=== PATIENT | female | born 1980 | race Caucasian/White ===

== ENCOUNTER 2022-05-10 07:30 | Outpatient (CLI) | payer BC, SELFPAY | END 2022-05-10 07:31 | disposition home or self-care (01) | PROVIDERS: PCP Family Medicine; Referring Provider Family Medicine; Visit Provider Family Medicine | DX: Z00.00 Encounter for general adult medical examination without abnormal findings (principal); E03.9 Hypothyroidism, unspecified; Z13.6 Encounter for screening for cardiovascular disorders | CPT/HCPCS: 80048; 80061; 84443 ==

== ENCOUNTER 2022-06-28 16:25 | Outpatient (CLI) | payer BC, SELFPAY | END 2022-06-28 16:26 | disposition home or self-care (01) | LOC: NFLDREF 07-03 08:31 | PROVIDERS: PCP Family Medicine; Referring Provider Family Medicine; Visit Provider Family Medicine | DX: D64.9 Anemia, unspecified (principal) | CPT/HCPCS: 82607; 82728; 83540 ==

== ENCOUNTER 2022-06-29 18:48 | Emergency (ER) | payer BC, SELFPAY ==
[2022-06-29 19:01] VITALS: BP 133/66; PULSE 120; RESP 24; TEMP 36.2; O2SAT 100; BMI 33.1
[2022-06-29] MEDS: 0.9 % SODIUM CHLORIDE 1000 ml 1,000 ML IV ×2 (19:20→20:25)
[2022-06-29] MEDS: LORazepam 2 MG/ML inj 1 MG IVP (19:20)
[2022-06-29 19:35] LABS: Basophils Percent Auto 0.4 % (0.0-3.0); Eosinophils Percent Auto 0.7 % (0.0-7.0); Hematocrit 43.9 % (33.0-51.0); Hemoglobin* 13.7 gm/dL (12.0-16.0); Immature Granulocytes Pct Auto 0.2 %; Mean Corpuscular HGB Conc 31 gm/dL (32-36); Mean Corpuscular Hemoglobin 23 pg (26-34); Mean Corpuscular Volume 75 fL (80-100); Monocytes Percent Auto 3.5 % (0.0-11.0); Neutrophils Percent Auto 79.2 % (42.0-72.0); Platelet Count* 355 K/uL (140-440); RDW Coefficient of Variation % 17.4 % (11.5-15.5); Red Blood Count 5.88 m/uL (4.00-5.20); White Blood Count* 13.53 K/uL (4.50-11.00)
[2022-06-29 19:47] LABS: Albumin* 5.3 g/dL (3.3-5.0)
[2022-06-29 19:48] LABS: Chloride* 99 mmol/L (96-114); Sodium* 137 mmol/L (135-149)
[2022-06-29 19:49] VITALS: BP 127/84; PULSE 88; RESP 18; O2SAT 100
[2022-06-29 19:50] LABS: Amylase* 96 U/L (18-89); Bilirubin Direct* 0.3 mg/dL (0.0-0.5); Bilirubin Total* 0.8 mg/dL (0.1-1.5); Carbon Dioxide* 21 mmol/L (20-32); Creatinine* 0.8 mg/dL (0.5-1.5); Est. Creatinine Clearance* 69.83; Estimated Glomerular Filt Rate 95 ml/min; Total Protein* 9.6 g/dL (6.0-8.3)
[2022-06-29 19:51] LABS: Alanine Aminotransferase* 32 U/L (4-35); Alkaline Phosphatase* 81 U/L (40-150); Aspartate Amino Transferase* 28 U/L (12-35); Blood Urea Nitrogen* 12 mg/dL (5-24); Calcium* 10.1 mg/dL (8.4-10.6); Glucose* 148 mg/dL (60-115); Lipase* 126 U/L (23-300)
[2022-06-29 19:53] LABS: Ethanol* < 0.01 % (0.01-0.03)
[2022-06-29] MEDS: POTASSIUM CHLORIDE 10 MEQ/100 ML PIGGYBACK 100 MEQ IVPB (20:07)
--- NOTE | 2022-06-29 20:15 | ED_ITS ---
HPI - Nausea/Vomiting/Diarrhea General Date Seen: 06/29/22 Chief complaint: Nausea/Vomiting Stated complaint: Vomiting Time Seen by Provider: 06/29/22 18:51 Source: patient and family Mode of arrival: ambulatory Limitations: no limitations History of Present Illness HPI Narrative: This very nice lady is brought in by with a history of nausea, vomiting, and now diarrhea. She believes is secondary to her Ozempic has it she has been on for approximately 4 weeks and was recently increased, 1 of the primary side effects is nausea vomiting she has been nauseated and alternating with diarrhea on off. Been using some Zofran for this. Denies any significant abdominal pain, blood in her stools or vomitus, he does have a history of vomiting in the past, and esophageal changes secondary to this. MD elicited complaint: nausea and vomiting Description of vomiting: food contents Description of diarrhea: semi-solid Associated nausea: Yes Associated abdominal pain: No Location of pain: none Severity: moderate Quality: cramping Relieving factors: none Associated symptoms: denies other symptoms Related Data Home Medications Medication Instructions Recorded Confirmed betamethasone dipropionate 0.05 % 1 applic topical BID PRN 10/03/21 03/12/22 topical cream pantoprazole 40 mg tablet,delayed 40 mg PO QDAY 10/03/21 03/12/22 release (Protonix) zolpidem 5 mg tablet (Ambien) 5 mg PO QHS PRN 03/12/22 03/12/22 Previous Rx's Medication Instructions Recorded cholecalciferol (vitamin D3) 125 125 mcg PO DAILY #90 tabs 01/21/22 mcg (5,000 unit) disintegrating tablet levothyroxine 75 mcg tablet 75 mcg PO QDAY #90 tabs 04/23/22 phentermine 37.5 mg capsule 37.5 mg PO QDAY #30 caps 04/23/22 triamterene 37.5 1 tab PO QDAY #90 tabs 04/23/22 mg-hydrochlorothiazide 25 mg tablet potassium chloride 10 mEq 10 meq PO BID #14 tabs 06/29/22 tablet,extended release(part/cryst) Allergies Allergy/AdvReac Type Severity Reaction Status Date / Time hydrocodone Allergy Intermediate Vomiting Verified 03/12/22 12:39 oxycodone Allergy Intermediate Nausea/vomi Verified 03/12/22 12:39 ting codeine Allergy Mild Nausea Verified 03/12/22 12:39 penicillin V Allergy Mild Swelling Verified 03/12/22 12:39 of throat Sulfa drugs Allergy Mild Rash Uncoded 03/12/22 12:39 Review of Systems Status of ROS: Reports: 10 or more systems reviewed and unremarkable except as noted in History and below GI: Reports: nausea PFSH PFSH Medical History Anemia ?D64.9 - Anemia, unspecified (ICD-10) History of PCOS ?Z87.42 - Personal history of other diseases of the female genital tract (ICD-10) Vitamin D deficiency ?E55.9 - Vitamin D deficiency, unspecified (ICD-10) Surgical History History of cholecystectomy (2010) ?Z90.49 - Acquired absence of other specified parts of digestive tract (ICD- 10) History of hysterectomy (2012) ?Z90.710 - Acquired absence of both cervix and uterus (ICD-10) History of parotid gland excision ?Z90.49 - Acquired absence of other specified parts of digestive tract (ICD- 10) Social History Smoking Status: Former smoker Do you use any of these nicotine containing products: None How often do you have a drink containing alcohol: monthly or less How often do you have six or more drinks on one occasion: Less than monthly AUDIT-C Alcohol total score: 2 Non-prescribed substance use: marijuana (any form) Little interest or pleasure in doing things: several days Feeling down, depressed, or hopeless: not at all Exam Narrative: Exam Narrative: Patient is seen in room 3, she is nauseous, went to the bathroom had a large bowel movement felt better. Pupils are equal round reactive to light there is no scleral icterus redness TMs are normal oropharynx normal there is no adenopathy anterior posterior chains her neck is supple full range of motion. Chest is clear bilaterally with no wheezing crackles noted heart sounds are normal, abdomen is soft, and benign. No tenderness to palpation no guarding, no CVA tenderness. She moves all extremities independently and well. Const: Vital Signs, click to edit/add: Vital Signs - 24 hr 06/29/22 19:01 06/29/22 19:49 Temperature 97.2 F L Pulse Rate [Pulse Oximeter] 120 H 88 Respiratory Rate 24 18 Blood Pressure [Le ft Upper Arm] 133/66 127/84 Pulse Oximetry 100 100 Oxygen Delivery Me thod Room Air Room Air Documenting provider has reviewed patient's vital signs: yes Course Course Hospital Course: I discussed with her that her laboratory work is pretty reassuring with the exce ption she is hypokalemic we will give her a bump a potassium as I do not think she would tolerate oral at this point. I will send her home on some oral replacement of potassium. Least for a couple days. She can also drink fluids, I will give her a small supply of Ativan also too. That will should help this. I will have her contact her physician regards the is impact, his I believe this is the side effect that she is causing her issues. Return here if further issues or questions or worsening of the current condition. Vital Signs Vital signs: Initial Vital Signs Temperature 97.2 F L 06/29/22 19:01 Temperature Source Temporal Artery Scan 06/29/22 19:01 Pulse Rate 120 H 06/29/22 19:01 Respiratory Rate 24 06/29/22 19:01 Blood Pressure 133/66 06/29/22 19:01 Blood Pressure Mean 88 06/29/22 19:01 Pulse Oximetry 100 06/29/22 19:01 Oxygen Delivery Method Room Air 06/29/22 19:01 Vital Signs Temperature 97.2 F L 06/29/22 19:01 Pulse Rate 120 H 06/29/22 19:01 Respiratory Rate 24 06/29/22 19:01 Blood Pressure 133/66 06/29/22 19:01 Pulse Oximetry 100 06/29/22 19:01 Oxygen Delivery Method Room Air 06/29/22 19:01 Temperature 97.2 F L 06/29/22 19:01 Pulse Rate 88 06/29/22 19:49 Respiratory Rate 18 06/29/22 19:49 Blood Pressure 127/84 06/29/22 19:49 Pulse Oximetry 100 06/29/22 19:49 Oxygen Delivery Method Room Air 06/29/22 19:49 MDM - Nausea/Vomiting/Diarrhea MDM Narrative Medical decision making narrative: Differential diagnosis includes but is not limited to viral gastroenteritis, drug food poisoning, pyloric stenosis, gastritis, pancreatitis, hepatitis, cholecystitis, appendicitis, bowel obstruction, hyperemesis, cyclic vomiting syndrome, bulimia nervosa, migraine headache, motion sickness and medication side effect. These include the life threatening complications of appendicitis, drug food poisoning and bowel obstruction. Medical Records Attestation: I reviewed the patient's medical records. Lab Data Attestation: I reviewed the patient's lab results. Labs: Lab Results 06/29/22 Range/Units 19:25 WBC 13.53 H (4.50-11.00) K/uL RBC 5.88 H (4.00-5.20) m/uL Hgb 13.7 (12.0-16.0) gm/dL Hct 43.9 (33.0-51.0) % MCV 75 L (80-100) fL MCH 23 L (26-34) pg MCHC 31 L (32-36) gm/dL RDW Coeff of Armando 17.4 H (11.5-15.5) % Plt Count 355 (140-440) K/uL Neut % (Auto) 79.2 H (42.0-72.0) % Lymph % (Auto) 16.0 L (20-44) % Dickinson % (Auto) 3.5 (0.0-11.0) % Eos % (Auto) 0.7 (0.0-7.0) % Baso % (Auto) 0.4 (0.0-3.0) % Neut # (Auto) 10.70 H (1.7-7.0) K/uL Lymph # (Auto) 2.20 (0.90-2.90) K/uL Dickinson # (Auto) 0.50 (0.00-0.90) K/UL Eos # (Auto) 0.10 (0.00-0.50) K/uL Baso # (Auto) 0.10 (0.00-0.30) K/uL Sodium 137 (135-149) mmol/L Potassium 3.0 L (3.6-5.1) mmol/L Chloride 99 (96-114) mmol/L Carbon Dioxide 21 (20-32) mmol/L BUN 12 (5-24) mg/dL Creatinine 0.8 (0.5-1.5) mg/dL Estimated Creat Clear 69.83 Estimated GFR 95 ml/min Glucose 148 H (60-115) mg/dL Calcium 10.1 (8.4-10.6) mg/dL Total Bilirubin 0.8 (0.1-1.5) mg/dL Direct Bilirubin 0.3 (0.0-0.5) mg/dL AST 28 (12-35) U/L ALT 32 (4-35) U/L Alkaline Phosphatase 81 (40-150) U/L Total Protein 9.6 H (6.0-8.3) g/dL Albumin 5.3 H (3.3-5.0) g/dL Amylase 96 H (18-89) U/L Lipase 126 (23-300) U/L Ethyl Alcohol < 0.01 L (0.01-0.03) % Discharge Plan Discharge Clinical Impression: Medication adverse effect, Nausea, Vomiting, Acute hypokalemia Patient Disposition: Home, Self-Care Condition: Stable Instructions: Hypokalemia (ED), Acute Nausea and Vomiting (ED) Additional Instructions: Home rest clear fluids uses Zofran at small supply of Ativan is also been given, return here if signs and symptoms will put you on some potassium replacement for couple days but he need to be careful as your on triamterene which can cause elevated potassium levels. Please call your primary provider who prescribes is emphatic, and discuss further continuation. White count was normal but the hemoglobin looks like you may have some mild iron deficiency anemia. You should follow-up with this is a known with your primary care physician Activity Level: Light activity Prescriptions: New potassium chloride 10 mEq tablet,ER particles/crystals 10 meq PO BID Qty: 14 2RF No Action pantoprazole [Protonix] 40 mg tablet,delayed release (DR/EC) 40 mg PO QDAY betamethasone dipropionate 0.05 % cream 1 applic topical BID PRN zolpidem [Ambien] 5 mg tablet 5 mg PO QHS PRN cholecalciferol (vitamin D3) 125 mcg (5,000 unit) tablet,disintegrating 125 mcg PO DAILY Qty: 90 3RF levothyroxine 75 mcg tablet 75 mcg PO QDAY Qty: 90 1RF phentermine 37.5 mg capsule 37.5 mg PO QDAY Qty: 30 0RF Rx Instructions: must administer 30 minutes before or 1-2 hours after breakfast triamterene-hydrochlorothiazid 37.5-25 mg tablet 1 tab PO QDAY Qty: 90 0RF Follow Up/Referrals: Matias Agrawal MD [Primary Care Provider] - Stand Alone Forms: [employer] Info Instructions
[2022-06-29 20:16] LABS: Slide Review Reflex No
[2022-06-29 21:05] LABS: Appearance Urine Clear (Clear); Bilirubin Urine Negative (Negative); Blood Urine Negative (Negative); Color Urine Yellow (Yellow); Glucose Urine Negative (Negative); Ketones Urine 1+ (Negative); Leukocyte Esterase Urine Negative (Negative); Nitrite Urine Negative (Negative); Protein Urine Trace (Negative); Urobilinogen Urine 0.2 (0.2-1.0); pH Urine 8.5 (5.0-8.5)
[2022-06-29 21:06] VITALS: BP 144/86; PULSE 92; RESP 18; O2SAT 100
[2022-06-29 21:06] LABS: RBC Urine 0-2 (0-2); Squamous Epithelial Cell Urine Few (None-Few); WBC Urine 0-2 (0-5)
--- NOTE | 2022-06-29 21:23 | PC.NURSE ---
patient DC with , nausea has improved and patient no longer vomiting. all DC instructions gone over with patient and with no further questions.
== END 2022-06-29 21:23 | disposition home or self-care (01) ==
PROVIDERS: Emergency Provider Family Medicine; PCP Family Medicine
DX: R11.2 Nausea with vomiting, unspecified (principal); E87.6 Hypokalemia; T38.3X5A Adverse effect of insulin and oral hypoglycemic [antidiabetic] drugs, initial encounter
CPT/HCPCS: 36415; 80048; 80076; 81001; 82077; 82150; 83690; 85025; 96365; 96375; 99284; J2060; J3480; J7030

== ENCOUNTER 2022-07-02 19:26 | Emergency (ER) | payer BC, SELFPAY ==
[2022-07-02 19:33] VITALS: BP 127/85; PULSE 106; RESP 20; TEMP 36; O2SAT 98; BMI 31.6
--- NOTE | 2022-07-02 21:59 | ED.NAVMDI ---
HPI - Nausea/Vomiting/Diarrhea General Time Seen by Provider: 21:59 <Ruth Black MD - Last Filed: 07/05/22 19:49> Date Seen: 07/02/22 <Ruth Black MD - Last Filed: 07/05/22 19:49> Chief complaint: Nausea/Vomiting <Ruth Black MD - Last Filed: 07/05/22 19:49> Stated complaint: Throwing up and diarrhea for 4 days <Ruth Black MD - Last Filed: 07/05/22 19:49> Time Seen by Provider: 07/02/22 21:58 <Ruth Black MD - Last Filed: 07/05/22 19:49> Source: patient, RN notes reviewed and old records reviewed <Ruth Black MD - Last Filed: 07/05/22 19:49> Mode of arrival: ambulatory <Ruth Black MD - Last Filed: 07/05/22 19:49> Limitations: no limitations <Ruth Black MD - Last Filed: 07/05/22 19:49> History of Present Illness HPI Narrative: Patient is a 41-year-old female with history hypokalemia, hypertension, on phentermine for weight loss as well as Ozempic who comes to the emergency room with continued vomiting and diarrhea. Patient notes that for the past 2 weeks she has felt somewhat constipated in only had 2 stools in approximately 15 days. On SaturdayJune 29 she was actually at the grocery store which she had the sudden onset of vomiting. She went home and tried to Zofran is a but it did not help. She was actually thinking that perhaps the vomiting was from some constipation and therefore was going to send her up for MiraLax when she had the sudden onset of vomiting and stooling. Her diarrhea was bright yellow and has continued since then. She was seen at the emergency room on Saturday at which time she had a low potassium but other reassuring labs and was feeling better after fluids potassium and Ativan. She was discharged home. Since that time she has continued to have diarrhea and has had occasional vomiting. Today she notes that the vomiting has continued and she was seen at urgent care but urgent care to suggested she come to the emergency room. She notes that Ozempic does have side effects of nausea and vomiting and she was told to avoid fatty and high sugar foods which she has done. She notes that she still continues to feel bloated. She has not been on any recent antibiotics she denies a fever. She notes that for while she states that she has had breath that has smelled like rotten eggs this improved slightly after receiving the fluids but now has return. She notes that she just feels tired at this time. She describes a constant ache and burning sensation in her stomach. She denies alcohol use denies drug use except for marijuana and does not smoke anymore. Describes cramps in her intestines. She has not noticed any blood in her stool or vomit. <Ruth Black MD - Last Filed: 07/05/22 19:49> Associated nausea: Yes <Ruth Black MD - Last Filed: 07/05/22 19:49> Related Data Home medications: Home Medications Medication Instructions Recorded Confirmed betamethasone dipropionate 0.05 % 1 applic topical BID PRN 10/03/21 07/02/22 topical cream pantoprazole 40 mg tablet,delayed 40 mg PO QDAY 10/03/21 07/02/22 release (Protonix) zolpidem 5 mg tablet (Ambien) 5 mg PO QHS PRN 03/12/22 07/02/22 lorazepam 0.5 mg tablet 0.5 mg PO BID PRN 07/02/22 07/02/22 ondansetron 4 mg disintegrating 4 mg PO Q8H PRN 07/02/22 07/02/22 tablet phentermine 37.5 mg tablet 37.5 mg PO DAILY 07/02/22 07/02/22 semaglutide 1 mg/dose (2 mg/1.5 0.5 mg subcut QWEEK 07/02/22 07/02/22 mL) subcutaneous pen injector (Ozempic) Previous Rx's Medication Instructions Recorded cholecalciferol (vitamin D3) 125 125 mcg PO DAILY #90 tabs 01/21/22 mcg (5,000 unit) disintegrating tablet levothyroxine 75 mcg tablet 75 mcg PO QDAY #90 tabs 04/23/22 phentermine 37.5 mg capsule 37.5 mg PO QDAY #30 caps 04/23/22 triamterene 37.5 1 tab PO QDAY #90 tabs 04/23/22 mg-hydrochlorothiazide 25 mg tablet potassium chloride 10 mEq 10 meq PO BID #14 tabs 06/29/22 tablet,extended release(part/cryst) ferrous sulfate 325 mg (65 mg 325 mg PO BID #60 tabs 07/05/22 iron) tablet <Ruth Black MD - Last Filed: 07/05/22 19:49> Allergies/Adverse reactions: Allergies Allergy/AdvReac Type Severity Reaction Status Date / Time hydrocodone Allergy Intermediate Vomiting Verified 07/03/22 01:13 oxycodone Allergy Intermediate Nausea/vomi Verified 07/03/22 01:13 ting codeine Allergy Mild Nausea Verified 07/03/22 01:13 penicillin V Allergy Mild Swelling Verified 07/03/22 01:13 of throat Sulfa drugs Allergy Mild Rash Uncoded 07/03/22 01:13 <Ruth Black MD - Last Filed: 07/05/22 19:49> Review of Systems Status of ROS: Reports: 10 or more systems reviewed and unremarkable except as noted in History and below <Ruth Black MD - Last Filed: 07/05/22 19:49> Const: Reports: fatigue; Denies: fever or chills <Ruth Black MD - Last Filed: 07/05/22 19:49> ENMT: Denies: throat pain, neck pain, throat swelling or hoarseness <Ruth Black MD - Last Filed: 07/05/22 19:49> Cardio: Denies: chest pain, swelling of feet/ankles or shortness of breath with exertion <Ruth Black MD - Last Filed: 07/05/22 19:49> Resp: Denies: shortness of breath or cough <Ruth Black MD - Last Filed: 07/05/22 19:49> GI: Reports: abdominal pain, nausea, vomiting and diarrhea; Denies: blood in stool <Ruth Black MD - Last Filed: 07/05/22 19:49> : Denies: painful urination or urinary frequency <Ruth Black MD - Last Filed: 07/05/22 19:49> Musculo: Reports: back pain (Low back discomfort); Denies: neck pain <Ruth Black MD - Last Filed: 07/05/22 19:49> Neuro: Denies: headache <Ruth Black MD - Last Filed: 07/05/22 19:49> Endo: Reports: fatigue <Ruth Black MD - Last Filed: 07/05/22 19:49> Allergy/Immuno: Denies: throat swelling <Ruth Black MD - Last Filed: 07/05/22 19:49> [facility] Medical History: Medical History Anemia ?D64.9 - Anemia, unspecified (ICD-10) History of PCOS ?Z87.42 - Personal history of other diseases of the female genital tract (ICD-10) Vitamin D deficiency ?E55.9 - Vitamin D deficiency, unspecified (ICD-10) <Ruht Black MD - Last Filed: 07/05/22 19:49> Surgical History: Surgical History History of cholecystectomy (2010) ?Z90.49 - Acquired absence of other specified parts of digestive tract (ICD-10) History of hysterectomy (2012) ?Z90.710 - Acquired absence of both cervix and uterus (ICD-10) History of parotid gland excision ?Z90.49 - Acquired absence of other specified parts of digestive tract (ICD-10) <Ruth Black MD - Last Filed: 07/05/22 19:49> Social History: Social History Smoking Status: Never smoker Do you use any of these nicotine containing products: None How often do you have a drink containing alcohol: monthly or less How often do you have six or more drinks on one occasion: Less than monthly AUDIT-C Alcohol total score: 2 Non-prescribed substance use: marijuana (any form) Little interest or pleasure in doing things: several days Feeling down, depressed, or hopeless: not at all <Ruth Black MD - Last Filed: 07/05/22 19:49> Exam Narrative: Exam Narrative: Patient is alert and oriented. She is nontoxic in appearance but is holding her vomit bag. She is somewhat pale and oral cavities with tacky mucous membranes. External ears eyes nose clear. Neck was supple without lymphadenopathy heart with that is with a tachycardic rate but normal rhythm at this time. Lungs are clear bilaterally. Abdomen is obese soft I really cannot elicit any tenderness. Bowel sounds are present. Lower extremities without edema. No peritoneal signs and she is moving on the bed without difficulty. <Ruth Black MD - Last Filed: 07/05/22 19:49> Const: Vital Signs, click to edit/add: Vital Signs - 24 hr 07/02/22 19:33 07/02/22 22:27 07/02/22 23:39 Temperature 96.8 F L Pulse Rate [Pulse Oximeter] 106 H 93 92 Respiratory Rate 20 18 18 Blood Pressure [Ri ght Upper Arm] 127/85 141/88 H 123/80 Pulse Oximetry 98 98 98 Oxygen Delivery Me thod Room Air Room Air Room Air 07/03/22 00:23 07/03/22 02:15 Temperature Pulse Rate [Pulse Oximeter] 92 94 Respiratory Rate 18 16 Blood Pressure [Ri ght Upper Arm] 130/77 135/89 Pulse Oximetry 99 98 Oxygen Delivery Me thod Room Air Room Air <Ruth Black MD - Last Filed: 07/05/22 19:49> Vital Signs, click to edit/add: Vital Signs - 24 hr 07/02/22 19:33 07/02/22 22:27 07/02/22 23:39 Temperature 96.8 F L Pulse Rate [Pulse Oximeter] 106 H 93 92 Respiratory Rate 20 18 18 Blood Pressure [Ri ght Upper Arm] 127/85 141/88 H 123/80 Pulse Oximetry 98 98 98 Oxygen Delivery Me thod Room Air Room Air Room Air 07/03/22 00:23 07/03/22 02:15 Temperature Pulse Rate [Pulse Oximeter] 92 94 Respiratory Rate 18 16 Blood Pressure [Ri ght Upper Arm] 130/77 135/89 Pulse Oximetry 99 98 Oxygen Delivery Me thod Room Air Room Air <Cheryl Khan MD - Last Filed: 07/03/22 05:36> Documenting provider has reviewed patient's vital signs: yes <Ruth Black MD - Last Filed: 07/05/22 19:49> Course Course Hospital Course: Differential diagnosis includes but is not limited to viral gastroenteritis, drug food poisoning, pyloric stenosis, gastritis, pancreatitis, hepatitis, cholecystitis, appendicitis, bowel obstruction, hyperemesis, cyclic vomiting syndrome, bulimia nervosa, migraine headache, motion sickness and medication side effect. These include the life threatening? complications of appendicitis, drug food poisoning and bowel obstruction. Will place IV and give 1 L normal saline, Zofran 4 mg, Ativan 0.5 mg IV will proceed with CT of the abdomen. Will also check labs to include CBC, comprehensive panel, CRP, lipase, urinalysis. <Ruth Black MD - Last Filed: 07/05/22 19:49> Reevaluation(s) Reevaluation #1: Patient noted to have 4+ ketones in her urine thus she was given an additional L of normal saline. Also given 50 mEq of p.o. potassium. She has been able to keep this down. <Ruth Black MD - Last Filed: 07/05/22 19:49> Vital Signs Vital signs: Initial Vital Signs Temperature 96.8 F L 07/02/22 19:33 Temperature Source Temporal Artery Scan 07/02/22 19:33 Pulse Rate 106 H 07/02/22 19:33 Respiratory Rate 20 07/02/22 19:33 Blood Pressure 127/85 07/02/22 19:33 Blood Pressure Mean 99 07/02/22 19:33 Blood Pressure Position Sitting 07/02/22 19:33 Pulse Oximetry 98 07/02/22 19:33 Oxygen Delivery Method Room Air 07/02/22 19:33 Vital Signs Temperature 96.8 F L 07/02/22 19:33 Pulse Rate 106 H 07/02/22 19:33 Respiratory Rate 20 07/02/22 19:33 Blood Pressure 127/85 07/02/22 19:33 Pulse Oximetry 98 07/02/22 19:33 Oxygen Delivery Method Room Air 07/02/22 19:33 Temperature 96.8 F L 07/02/22 19:33 Pulse Rate 94 07/03/22 02:15 Respiratory Rate 16 07/03/22 02:15 Blood Pressure 135/89 07/03/22 02:15 Pulse Oximetry 98 07/03/22 02:15 Oxygen Delivery Method Room Air 07/03/22 02:15 <Ruth Black MD - Last Filed: 07/05/22 19:49> Initial Vital Signs Temperature 96.8 F L 07/02/22 19:33 Temperature Source Temporal Artery Scan 07/02/22 19:33 Pulse Rate 106 H 07/02/22 19:33 Respiratory Rate 20 07/02/22 19:33 Blood Pressure 127/85 07/02/22 19:33 Blood Pressure Mean 99 07/02/22 19:33 Blood Pressure Position Sitting 07/02/22 19:33 Pulse Oximetry 98 07/02/22 19:33 Oxygen Delivery Method Room Air 07/02/22 19:33 Vital Signs Temperature 96.8 F L 07/02/22 19:33 Pulse Rate 106 H 07/02/22 19:33 Respiratory Rate 20 07/02/22 19:33 Blood Pressure 127/85 07/02/22 19:33 Pulse Oximetry 98 07/02/22 19:33 Oxygen Delivery Method Room Air 07/02/22 19:33 Temperature 96.8 F L 07/02/22 19:33 Pulse Rate 94 07/03/22 02:15 Respiratory Rate 16 07/03/22 02:15 Blood Pressure 135/89 07/03/22 02:15 Pulse Oximetry 98 07/03/22 02:15 Oxygen Delivery Method Room Air 07/03/22 02:15 <Cheryl Khan MD - Last Filed: 07/03/22 05:36> MDM - Nausea/Vomiting/Diarrhea MDM Narrative Medical decision making narrative: 1. Vomiting and diarrhea-no evidence of abnormality noted on abdominal CT. White count is within normal limits and CRP is normal as well. Negative C diff and stool culture is currently pending. Likely this is secondary to use of Ozempic. Patient received 2 L of normal saline, Ativan and Zofran. Will discharge her home with continued medications of this nature. Recommend no future use of Ozempic. 2. Hypokalemia-3.4. Given 50 mEq of p.o. potassium. 3. Disposition-home at this time. Seek medical attention for worsening symptoms. <Ruth Black MD - Last Filed: 07/05/22 19:49> 1. Vomiting and diarrhea-no evidence of abnormality noted on abdominal CT. White count is within normal limits and CRP is normal as well. Negative C diff and stool culture is currently pending. Likely this is secondary to use of Ozempic. Patient received 2 L of normal saline, Ativan and Zofran. Will discharge her home with continued medications of this nature. Recommend no future use of Ozempic. 2. Hypokalemia-3.4. Given 50 mEq of p.o. potassium. 3. Disposition-home at this time. Seek medical attention for worsening symptoms. Dr. Khan: Update: 1:00 a.m.: Patient was able to tolerate some soup and had held down her oral potassium. She meets criteria for discharge. She is instructed to stop her Ozempic, continue the Zofran and lorazepam as needed. Push fluids and follow up with her primary care team to discuss alternative options. <Cheryl Khan MD - Last Filed: 07/03/22 05:36> Medical Records Attestation: I reviewed the patient's medical records. <Ruth Black MD - Last Filed: 07/05/22 19:49> Lab Data Attestation: I reviewed the patient's lab results. <Ruth Black MD - Last Filed: 07/05/22 19:49> Labs: Lab Results 07/02/22 07/02/22 07/02/22 Range/Units 22:15 22:21 22:34 WBC 10.93 (4.50-11.00) K/uL RBC 5.61 H (4.00-5.20) m/uL Hgb 13.1 (12.0-16.0) gm/dL Hct 41.4 (33.0-51.0) % MCV 74 L (80-100) fL MCH 23 L (26-34) pg MCHC 32 (32-36) gm/dL RDW Coeff of Armando 17.5 H (11.5-15.5) % Plt Count 305 (140-440) K/uL Neut % (Auto) 71.7 (42.0-72.0) % Lymph % (Auto) 21.4 (20-44) % [place] % (Auto) 5.0 (0.0-11.0) % Eos % (Auto) 1.2 (0.0-7.0) % Baso % (Auto) 0.3 (0.0-3.0) % Neut # (Auto) 7.84 H (1.7-7.0) K/uL Lymph # (Auto) 2.34 (0.90-2.90) K/uL [place] # (Auto) 0.50 (0.00-0.90) K/UL Eos # (Auto) 0.13 (0.00-0.50) K/uL Baso # (Auto) 0.03 (0.00-0.30) K/uL Sodium 135 (135-149) mmol/L Potassium 3.4 L (3.6-5.1) mmol/L Chloride 101 (96-114) mmol/L Carbon Dioxide 18 L (20-32) mmol/L BUN 12 (5-24) mg/dL Creatinine 0.9 (0.5-1.5) mg/dL Estimated Creat Clear 62.07 Estimated GFR 82 ml/min Glucose 87 (60-115) mg/dL Calcium 9.6 (8.4-10.6) mg/dL Magnesium 1.8 (1.5-2.6) mg/dL Total Bilirubin 0.8 (0.1-1.5) mg/dL AST 45 H (12-35) U/L ALT 34 (4-35) U/L Alkaline Phosphatase 57 (40-150) U/L C-Reactive Protein 0.6 (0.5-1.0) mg/dL Total Protein 8.5 H (6.0-8.3) g/dL Albumin 5.3 H (3.3-5.0) g/dL Lipase 50 (23-300) U/L Urine Color Yellow (Yellow) Urine Appearance Cloudy A (Clear) Urine pH 6.5 (5.0-8.5) Ur Specific [place] 1.015 (1.000-1.030) Urine Protein Negative (Negative) Urine Glucose (UA) Negative (Negative) Urine Ketones 4+ A (Negative) Urine Blood Negative (Negative) Urine Nitrite Negative (Negative) Urine Bilirubin 1+ A (Negative) Urine Urobilinogen 0.2 (0.2-1.0) Ur Leukocyte Esterase Negative (Negative) Urine RBC 25-50 A (0-2) Urine WBC 2-5 (0-5) Ur Squamous Epith Cells Few (None-Few) Urine Bacteria Few A (None) Stl C. diff Tox B Gene Negative (Negative) Stl C. diff 027-NAP1-BI PRESUMPTIVE NEGATIVE (Negative) SARS-CoV-2 (PCR) Negative SARS-CoV-2 (Negative) Influenza Type A (PCR) Negative PCR FLU A (Negative) Influenza Type B (PCR) Negative PCR FLU B (Negative) <Ruth Black MD - Last Filed: 07/05/22 19:49> Lab Results 07/02/22 07/02/22 07/02/22 Range/Units 22:15 22:21 22:34 WBC 10.93 (4.50-11.00) K/uL RBC 5.61 H (4.00-5.20) m/uL Hgb 13.1 (12.0-16.0) gm/dL Hct 41.4 (33.0-51.0) % MCV 74 L (80-100) fL MCH 23 L (26-34) pg MCHC 32 (32-36) gm/dL RDW Coeff of Armando 17.5 H (11.5-15.5) % Plt Count 305 (140-440) K/uL Neut % (Auto) 71.7 (42.0-72.0) % Lymph % (Auto) 21.4 (20-44) % [place] % (Auto) 5.0 (0.0-11.0) % Eos % (Auto) 1.2 (0.0-7.0) % Baso % (Auto) 0.3 (0.0-3.0) % Neut # (Auto) 7.84 H (1.7-7.0) K/uL Lymph # (Auto) 2.34 (0.90-2.90) K/uL [place] # (Auto) 0.50 (0.00-0.90) K/UL Eos # (Auto) 0.13 (0.00-0.50) K/uL Baso # (Auto) 0.03 (0.00-0.30) K/uL Sodium 135 (135-149) mmol/L Potassium 3.4 L (3.6-5.1) mmol/L Chloride 101 (96-114) mmol/L Carbon Dioxide 18 L (20-32) mmol/L BUN 12 (5-24) mg/dL Creatinine 0.9 (0.5-1.5) mg/dL Estimated Creat Clear 62.07 Estimated GFR 82 ml/min Glucose 87 (60-115) mg/dL Calcium 9.6 (8.4-10.6) mg/dL Magnesium 1.8 (1.5-2.6) mg/dL Total Bilirubin 0.8 (0.1-1.5) mg/dL AST 45 H (12-35) U/L ALT 34 (4-35) U/L Alkaline Phosphatase 57 (40-150) U/L C-Reactive Protein 0.6 (0.5-1.0) mg/dL Total Protein 8.5 H (6.0-8.3) g/dL Albumin 5.3 H (3.3-5.0) g/dL Lipase 50 (23-300) U/L Urine Color Yellow (Yellow) Urine Appearance Cloudy A (Clear) Urine pH 6.5 (5.0-8.5) Ur Specific [place] 1.015 (1.000-1.030) Urine Protein Negative (Negative) Urine Glucose (UA) Negative (Negative) Urine Ketones 4+ A (Negative) Urine Blood Negative (Negative) Urine Nitrite Negative (Negative) Urine Bilirubin 1+ A (Negative) Urine Urobilinogen 0.2 (0.2-1.0) Ur Leukocyte Esterase Negative (Negative) Urine RBC 25-50 A (0-2) Urine WBC 2-5 (0-5) Ur Squamous Epith Cells Few (None-Few) Urine Bacteria Few A (None) Stl C. diff Tox B Gene Negative (Negative) Stl C. diff 027-NAP1-BI PRESUMPTIVE NEGATIVE (Negative) SARS-CoV-2 (PCR) Negative SARS-CoV-2 (Negative) Influenza Type A (PCR) Negative PCR FLU A (Negative) Influenza Type B (PCR) Negative PCR FLU B (Negative) <Cheryl Khan MD - Last Filed: 07/03/22 05:36> Imaging Data CT scan - abdomen: Attestation: I have reviewed the pertinent imaging results. <Ruth Black MD - Last Filed: 07/05/22 19:49> Radiologist's impression: Lower chest: Unremarkable. Liver: Unremarkable. Spleen: Unremarkable. Pancreas: Unremarkable. Gallbladder: Previous cholecystectomy noted without significant intra- or extrahepatic biliary ductal dilatation seen. Kidney: Unremarkable. No kidney or ureteral stones or obstruction seen. Adrenal: Unremarkable. Bowel: Diverticulosis of the proximal sigmoid colon is present. The colon is collapsed and difficult to evaluate. The appendix is normal in appearance and size. A moderate, stable fat containing umbilical hernia is noted. Vascular: Unremarkable. Lymph: Unremarkable. Peritoneum: Unremarkable. No pneumoperitoneum is seen. No significant ascites is noted. Pelvis: Unremarkable. Soft tissue: Unremarkable. Bone: Unremarkable for age. IMPRESSION: 1. No CT correlate for the patient`s symptoms seen. <Ruth Black MD - Last Filed: 07/05/22 19:49> Discharge Plan Discharge Patient Disposition: Home, Self-Care <Ruth Black MD - Last Filed: 07/05/22 19:49> Additional Instructions: instructions written by MD during downtime. <Ruth Black MD - Last Filed: 07/05/22 19:49> Prescriptions: No Action pantoprazole [Protonix] 40 mg tablet,delayed release (DR/EC) 40 mg PO QDAY betamethasone dipropionate 0.05 % cream 1 applic topical BID PRN zolpidem [Ambien] 5 mg tablet 5 mg PO QHS PRN potassium chloride 10 mEq tablet,ER particles/crystals 10 meq PO BID Qty: 14 2RF phentermine 37.5 mg tablet 37.5 mg PO DAILY lorazepam 0.5 mg tablet 0.5 mg PO BID PRN ondansetron 4 mg tablet,disintegrating 4 mg PO Q8H PRN Ozempic 1 mg/dose (2 mg/1.5 mL) pen injector 0.5 mg subcut QWEEK cholecalciferol (vitamin D3) 125 mcg (5,000 unit) tablet,disintegrating 125 mcg PO DAILY Qty: 90 3RF levothyroxine 75 mcg tablet 75 mcg PO QDAY Qty: 90 1RF phentermine 37.5 mg capsule 37.5 mg PO QDAY Qty: 30 0RF Rx Instructions: must administer 30 minutes before or 1-2 hours after breakfast triamterene-hydrochlorothiazid 37.5-25 mg tablet 1 tab PO QDAY Qty: 90 0RF ferrous sulfate 325 mg (65 mg iron) tablet 325 mg PO BID Qty: 60 2RF <Ruth Black MD - Last Filed: 07/05/22 19:49> Follow Up/Referrals: Matias Agrawal MD [Primary Care Provider] - <Ruth Black MD - Last Filed: 07/05/22 19:49> Stand Alone Forms: My[facility] Info Instructions <Ruth Black MD - Last Filed: 07/05/22 19:49>
[2022-07-02] MEDS: 0.9 % SODIUM CHLORIDE 1000 ml 1,000 ML IV ×2 (22:24→23:33)
[2022-07-02] MEDS: LORazepam 2 MG/ML inj 0.5 MG IVP (22:24)
[2022-07-02] MEDS: ONDANSETRON 2 MG/ML inj 4 MG IVP (22:24)
[2022-07-02 22:27] VITALS: BP 141/88; PULSE 93; RESP 18; O2SAT 98
[2022-07-02 22:38] LABS: Appearance Urine Cloudy (Clear); Bilirubin Urine 1+ (Negative); Blood Urine Negative (Negative); Color Urine Yellow (Yellow); Glucose Urine Negative (Negative); Ketones Urine 4+ (Negative); Leukocyte Esterase Urine Negative (Negative); Nitrite Urine Negative (Negative); Protein Urine Negative (Negative); Specific Gravity Urine 1.015 (1.000-1.030); Urobilinogen Urine 0.2 (0.2-1.0); pH Urine 6.5 (5.0-8.5)
[2022-07-02 22:46] LABS: Basophils Absolute Auto 0.03 K/uL (0.00-0.30); Basophils Percent Auto 0.3 % (0.0-3.0); Eosinophils Absolute Auto 0.13 K/uL (0.00-0.50); Eosinophils Percent Auto 1.2 % (0.0-7.0); Hematocrit 41.4 % (33.0-51.0); Hemoglobin* 13.1 gm/dL (12.0-16.0); Immature Granulocytes Abs Auto 0.04 K/uL (0.00-0.30); Immature Granulocytes Pct Auto 0.4 %; Lymphocytes Absolute Auto 2.34 K/uL (0.90-2.90); Lymphocytes Percent Auto 21.4 % (20-44); Mean Corpuscular HGB Conc 32 gm/dL (32-36); Mean Corpuscular Hemoglobin 23 pg (26-34); Mean Corpuscular Volume 74 fL (80-100); Neutrophils Absolute Auto 7.84 K/uL (1.7-7.0); Neutrophils Percent Auto 71.7 % (42.0-72.0); Platelet Count* 305 K/uL (140-440); RDW Coefficient of Variation % 17.5 % (11.5-15.5); Red Blood Count 5.61 m/uL (4.00-5.20); Slide Review Reflex No; White Blood Count* 10.93 K/uL (4.50-11.00)
[2022-07-02 22:59] LABS: Albumin* 5.3 g/dL (3.3-5.0); Chloride* 101 mmol/L (96-114)
[2022-07-02 23:00] LABS: Potassium* 3.4 mmol/L (3.6-5.1); Sodium* 135 mmol/L (135-149)
[2022-07-02 23:00] LABS: Bacteria Urine Few; RBC Urine 25-50 (0-2); Squamous Epithelial Cell Urine Few (None-Few)
[2022-07-02 23:02] LABS: Bilirubin Total* 0.8 mg/dL (0.1-1.5); Creatinine* 0.9 mg/dL (0.5-1.5); Est. Creatinine Clearance* 62.07; Estimated Glomerular Filt Rate 82 ml/min
[2022-07-02 23:03] LABS: Alanine Aminotransferase* 34 U/L (4-35); Alkaline Phosphatase* 57 U/L (40-150); Aspartate Amino Transferase* 45 U/L (12-35); Blood Urea Nitrogen* 12 mg/dL (5-24); Carbon Dioxide* 18 mmol/L (20-32); Glucose* 87 mg/dL (60-115); Lipase* 50 U/L (23-300); Total Protein* 8.5 g/dL (6.0-8.3)
[2022-07-02 23:04] LABS: Calcium* 9.6 mg/dL (8.4-10.6); Magnesium* 1.8 mg/dL (1.5-2.6)
[2022-07-02 23:06] LABS: C Reactive Protein* 0.6 mg/dL (0.5-1.0)
[2022-07-02 23:22] LABS: PCR FLU A Negative PCR FLU A (Negative); PCR FLU B Negative PCR FLU B (Negative)
--- NOTE | 2022-07-02 23:28 | CRLHL7_ITS ---
For Patients: As a result of the Cures Act, medical imaging exams and procedure reports are released immediately into your electronic medical record. You may view this report before your referring provider. If you have questions, please contact your health care provider. INDICATION: Vomiting, diarrhea TECHNIQUE: CT Abdomen and pelvis with i.v. contrast. Coronal and sagittal reformats were obtained. CONTRAST: 82 mL Isovue 370 COMPARISON: 03/01/2020 FINDINGS: Lower chest: Unremarkable. Liver: Unremarkable. Spleen: Unremarkable. Pancreas: Unremarkable. Gallbladder: Previous cholecystectomy noted without significant intra- or extrahepatic biliary ductal dilatation seen. Kidney: Unremarkable. No kidney or ureteral stones or obstruction seen. Adrenal: Unremarkable. Bowel: Diverticulosis of the proximal sigmoid colon is present. The colon is collapsed and difficult to evaluate. The appendix is normal in appearance and size. A moderate, stable fat containing umbilical hernia is noted. Vascular: Unremarkable. Lymph: Unremarkable. Peritoneum: Unremarkable. No pneumoperitoneum is seen. No significant ascites is noted. Pelvis: Unremarkable. Soft tissue: Unremarkable. Bone: Unremarkable for age. IMPRESSION: 1. No CT correlate for the patient`s symptoms seen. Dictated by Mukul Sparrow MD @ 07/03/2022 12:22:32 AM Please note that all CT scans at this facility use dose modulation, iterative reconstruction, and/or weight-based dosing when appropriate to reduce radiation dose to as low as reasonably achievable. Dictated by: Mukul Sparrow MD @ 07/03/2022 00:22:35 (Electronically Signed)
[2022-07-02 23:39] VITALS: BP 123/80; PULSE 92; RESP 18; O2SAT 98
[2022-07-03 00:09] LABS: SARS PCR* Negative SARS-CoV-2 (Negative)
[2022-07-03 00:23] VITALS: BP 130/77; PULSE 92; RESP 18; O2SAT 99
[2022-07-03] MEDS: POTASSIUM BICARB 25 MEQ EFFERVESCENT TAB 50 MEQ PO (00:44)
[2022-07-03 00:51] LABS: C.Difficile Negative (Negative); CDIFFEPI 027 PRESUMPTIVE NEGATIVE (Negative)
[2022-07-03 02:15] VITALS: BP 135/89; PULSE 94; RESP 16; O2SAT 98
--- NOTE | 2022-07-03 05:35 | ED.NURSE ---
Down time occurred during patient visit. Patient provided with written discharge instructions. Patient verbalized understanding and all questions were answered. Patient left ambulatory from ED at 0226 with providing patient with a safe ride home.
== END 2022-07-03 02:26 | disposition home or self-care (01) ==
LOC: ED 22:05
PROVIDERS: Emergency Provider Family Medicine; PCP Family Medicine
DX: R11.2 Nausea with vomiting, unspecified (principal); R19.7 Diarrhea, unspecified; E87.6 Hypokalemia
CPT/HCPCS: 36415; 74177; 80053; 81001; 83690; 83735; 85025; 86140; 87045; 87046; 87086; 87186; 87427; 87493; 87631; 96361; 96374; 96375; 99284; 99285; A9270; J2060; J2405; J7030; Q9967

== ENCOUNTER 2022-10-15 11:45 | Outpatient (CLI) | payer BC, SELFPAY | END 2022-10-15 11:46 | disposition home or self-care (01) | LOC: NFLDREF 10-16 20:14 | PROVIDERS: PCP Family Medicine; Referring Provider Family Medicine; Visit Provider Family Medicine | DX: Z00.00 Encounter for general adult medical examination without abnormal findings (principal); E03.9 Hypothyroidism, unspecified; E55.9 Vitamin D deficiency, unspecified; G62.9 Polyneuropathy, unspecified; D50.9 Iron deficiency anemia, unspecified; G89.29 Other chronic pain; D64.9 Anemia, unspecified; I10 Essential (primary) hypertension; K21.9 Gastro-esophageal reflux disease without esophagitis; F41.1 Generalized anxiety disorder; F33.1 Major depressive disorder, recurrent, moderate | CPT/HCPCS: 80053; 82306; 82607; 82728; 84443 ==

== ENCOUNTER 2023-05-21 16:22 | Outpatient (CLI) | payer BC, SELFPAY | END 2023-05-21 16:23 | disposition home or self-care (01) | LOC: NFLDREF 05-22 06:29 | PROVIDERS: Visit Provider Nurse Practitioner | DX: N30.00 Acute cystitis without hematuria (principal); N30.01 Acute cystitis with hematuria | CPT/HCPCS: 87086; 87186 ==